=== PATIENT | female | born 2000 | race African-American/Black ===

== ENCOUNTER 2025-06-08 13:42 | Outpatient (CLI) | payer BC, SELFPAY ==
--- OUTSIDE RECORDS SUMMARY | 2025-06-08 13:30 | XMS_ITS | Encounter Summary ---
Author Organization [facility] KYLER Quiroga [facility] Address [address] [place] [address] Care Team Providers Care Monotyper Name Role Phone Unavailable Primary Care Provider Unavailabl e Reason for Referral * Laboratory Services (Routine) - Open Specialty Diagnoses / Procedures Referred By Bere sharma Referred To Contact Diagnoses Iron overload Procedures HEMOCHROMATOSIS GENOTYPE Lyle Soriano MD [address] [place] [address] Phone: tel: fax: Referral ID Status Reason Start Date Expiration Date Visits Re quested Visits Authorized [id number] Open 06/08/2025 07/09/2026 1 1 Reason for Visit * Reason Comments Establish Care Encounter Details Date Type Department Care Team (Late st Contact Info) Description 06/08/2025 1:30 PM CDT Office Visit [facility] Oncology and Hematology - [place] [address] [place] [address] [address] [place] [address] Lyle Soriano MD [address] [place] [address] Iron overload (Primary Dx) Social History Tobacco Use Types Packs/Day Years Used Date Smoking Tobacco: Never Smokeless Tobacco: Never Tobacco Cessation:Counseling Given: Not Answered Alcohol Use Standard Drinks/Week Comments Yes 0 (1 standard drink = 0.6 oz pur e alcohol) Daily 34- shots Comments Unknown Sex and Gender Information Value Date Recorded Sex Assigned at Not on file Legal Sex Female 3:51 PM CDT Gender Identity Not on file Sexual Orientation Not on file documented as of this encounter Last Filed Vital Signs Vital Sign Reading Time Taken Comments Blood Pressure 170/118 06/08/2025 1:26 PM CDT Pulse 107 06/08/2025 1:23 PM CDT Temperature 36.1 C (96.9 F) 06/08/2025 1:23 PM CDT Respiratory Rate 16 06/08/2025 1:23 PM CDT Oxygen Saturation 97% 06/08/2025 1:23 PM CDT Inhaled Oxygen Concentration - - Weight 117.7 kg (259 lb 6.4 oz) 06/08/2025 1:23 PM CDT Height 162.6 cm (5' 4) 06/08/2025 1:23 PM CDT Body Mass Index 44.53 06/08/2025 1:23 PM CDT documented in this encounter Progress Notes * Lyle Soriano MD - 06/08/2025 1:18 PM CDT Hematology-oncology consult Note Requesting Physician Primary Care Physician No primary care provider on file. Problem list There is no problem list on file for this patient. Previous TREATMENT ? Measurable Disease ? Reason for Visit Leslie Mi is a 25 y.o. female who was referred for consultation for iron overload. History of present illness This is a 25-year-old obese -Salvad[place] female with history of hypertension referred to wi forelevated serum iron level diagnosed in February 2025. According patient she was found to have elevated iron 2 years ago as well. She denies any history of hemochromatosis and family history of hemochromatosis as well. She drinks 3-4 shots a day for last 6 to 8 months duration. She has gained 70 pound weight in 6 years. Denies any history of liver disease. She denies taking any multivitamin or any other iron supplement. Her last menstrual bleeding was in May 2024 when Mirena IUD was placed. She denies any other new complaints. Past Medical History Past Medical History: Diagnosis Date Anemia, unspecified Hypertension Surgical History Past Surgical History: Procedure Laterality Date HX TONSILLECTOMY 2010 Medications Current Outpatient Medications Medication Sig Dispense Refill Cosentyx UnoReady Pen 300 mg/2 mL Pen Injector 300 mg. omeprazole (PriLOSEC) 20 mg Capsule, Delayed Release(E.C.) Take 20 mg by mouth daily. spironolactone (ALDACTONE) 100 mg tablet Take 100 mg by mouth daily. No current facility-administered medications for this visit. Allergies Allergies Allergen Reactions Sulfa (Sulfonamide Antibiotics) Hives Sulfamethoxazole-Trimethoprim Hives and Rash Immunizations: Immunization History Administered Date(s) Administered (AkaRx)(12 YR UP) COVID-19 VACCINE - EMERGENCY USE AUTHORIZATION, MRNA, [id number](PF) 30 MCG/0.3 MLIM SUSP 10/28/2020, 11/18/2020 Family History Family History Problem Relation Name Age of Onset Hypertension Father No Known Problems Mother Diabetes Brother No Known Problems Brother No Known Problems Child Social History Social History Tobacco Use Smoking status: Never Smokeless tobacco: Never Substance Use Topics Alcohol use: Yes Comment: Daily 34- shots Review of Systems Constitutional: Patient did not mention fever; no night sweats; no anorexia; no weight loss; no fatique NEENT: Patient did not mention headache; no change in vision; no change in hearing; no sore throat;no dysphagia Respiratory: Patient did not mention shortness of breath; no pleuritic chest pain; no cough; no hemoptysis Cardiac: Patient did not mention cardiac-like chest pain; no palpitations; no orthopnea; no PND; noDOE Breasts: Patient did not mention tenderness; no masses GI: Patient did not mention abdominal pain; no nausea; no vomiting; no diarrhea; no hematochezia; no melena : Patient did not mention dysuria; no frequency; no hesitancy; no hematuria CLOTH STRETCHER: Musculosketetal: Patient did not mention bone pain; no arthralgia; no joint swelling; no myalgia; Skin: Patient did not mention pruritis; no rash; no petechiae; no ecchymoses Endocrine: Patient did not mention polydipsia; no polyuria; no unusual weight gain Neuro: Patient did not mention headache; no change in vision; no sensory changes; no muscle weakness; no confusion; no seizures Psych: Patient did not mention anxiety; no depression; Physical Exam Vitals: As per nursing note Constitutional: Well developed, well nourished, no acute distress, non-toxic appearance Teeth and gum. No signs of infection or swelling. Eyes: PERRL, conjunctiva normal HEENT: Atraumatic, external ears normal, nose normal, oropharynx moist, no pharyngeal exudates. no sinus tenderness Neck- normal range of motion, no tenderness, supple Respiratory: No respiratory distress, normal breath sounds, no rales, no wheezing Cardiovascular: Normal rate, normal rhythm, no murmurs, no gallops, no rubs GI: Soft, nondistended, normal bowel sounds, nontender, no splenomegaly, no hepatomegaly, no mass, no rebound, no guarding : No costovertebral angle tenderness Musculoskeletal: No edema, no tenderness, no deformities. Back- no tenderness Integument: Well hydrated, no rash, Digits and nails inspection normal Lymphatic: No lymphadenopathy noted Neurologic: Alert & oriented x 3, CN 2-12 normal, normal motor function, normal sensory function, no focal deficits noted Psychiatric: Speech and behavior appropriate ? labs No results found for this or any previous visit (from the past 24 hours). Labs from January 2025 showed ferritin 207 iron 214 WBC 10.2 hemoglobin 14.4 platelet 318,000. Pathology ? Imaging & Other Studies Performance Status? Assessment / Plan: ? Iron overload. Patient is a 25-year-old obese -Salvad[place] female with history of hypertension referred to me for recently detected iron overload. According to patient she was told to have elevated serum iron 2 years ago. She denies any history of liver disease. She drinks 3-4 shots a day for last 6 to 8 months duration. She has gained 70 pound weight in 6 years. She is not taking any iron supplement and multivitamins. She has no family history of hemochromatosis. I have discussed the labs with the patient and implication of iron overload with the patient as well as the treatment in detail. I recommended regular exercise and weight loss along with abstinence from drinking. We will checkthe labs including CBC, CMP, iron profile and hemochromatosis genetic testing. I will discuss the results with patient in 2 weeks. Have answered all questions to patient satisfaction. GERD. Patient is on Prilosec. Thank you very much for allowing me to participate in Leslie Mi's evaluation and management. Please feel free to contact if I can be of any further assistance in your patient???s care requiring hematology or oncology evaluation. Sincerely, ? ? Lyle Soriano M.D. cell TOBACCO COUNSELING She is not a tobacco/nicotine user. Lyle Soriano MD ,06/08/2025 1:43 PM ? Total time spent 60 minutes, two third of the total time spent counseling patient [id number]. CC:? documented in this encounter Plan of Treatment Upcoming Encounters Date Type Department Care Team (Late st Contact Info) Description 06/22/2025 4:30 PM CDT Telephone Check Up [facility] Oncology and Hematology - [place] [address] [facility] [address] [place] [address] Lyle Soriano MD [address] [facility] [address] [place] [address] Scheduled Orders Name Type Priority Associated Diagnoses Orde r Schedule CBC WITH DIFFERENTIAL Lab Stat Iron overload Expected: 06/08/2025, Expires: 06/08/2026 COMPREHENSIVE METABOLIC PANEL Lab Stat Iron overload Expected: 06/08/2025, Expires: 06/08/2026 FERRITIN Lab Routine Iron overload Expected: 06/08/2025, Expires: 06/08/2026 IRON, TIBC, AND PERCENT SATURATION Lab Routine Iron overload Expected: 06/08/2025, Expires: 06/08/2026 HEMOCHROMATOSIS GENOTYPE Lab Routine Iron overload Ordered: 06/08/2025 documented as of this encounter Visit Diagnoses Diagnosis Iron overload- Primary Other disorders of iron metabolism documented in this encounter
[2025-06-08 14:14] LABS: Hematocrit 41.3 % (37.0-47.0); Hemoglobin 14.1 g/dL (12.0-15.0); Immature Granulocyte Percent A 0.4 % (0-0.5); Lymphocytes Absolute Auto 1.46 K/mm3 (0.9-3.2); Mean Corpuscular HGB Conc 34.1 g/dl (32-36); Mean Corpuscular Hemoglobin 33.3 pg (26-34); Mean Corpuscular Volume 97.6 fl (80-100); Nucleated Red Blood Cells Absolute Auto 0.000 K/mm3 (0.0-0.012); Nucleated Red Blood Cells Perc 0.0 % (0.0-0.2); Platelet Count Result 328 k/mm3 (150-375); Red Blood Count 4.23 M/mm3 (4.2-5.4); White Blood Count 10.8 K/mm3 (4.5-10.0)
--- OUTSIDE RECORDS SUMMARY | 2025-06-08 16:24 | XMS_ITS | Encounter Summary ---
Author Organization [facility] Address [address] [place] [address] Care Team Providers Care Electronic Systems Technician Name Role Phone Elian Galeana MD Unavailable Leila Moncada PA-C Primary Care Provider [phone]- [phone] Encounter Details Date Type Department Care Team (Latest Contact Info) Description 12/17/[address] [facility] Multispecialty Care - [facility] [address] [facility], [address] [place] [address] Sara Knox NP [address] [facility] [address] [place] [address] Colonoscopy questions Social History Tobacco Use Types Packs/Day Years Used Date Smoking Tobacco: Every Day Electronic Cigarettes Smokeless Tobacco: Never Comments:E-cigarrettes Alcohol Use Standard Drinks/Week Comments Yes 1.7 (1 standard drink = 0.6 oz p ure alcohol) AUDIT-C Answer Date Recorded Frequency of Alcohol Consumption Never 01/02/2019 Average Number of Drinks Not on file 019 Frequency of Binge Drinking Not on file 12/23 PHQ-2 Answer Date Recorded Patient Health Questionnaire-2 Score 0 07/07/2024 Comments No Sex and Gender Information Value Date Recorded Sex Assigned at Not on file Legal Sex Female 8:11 PM CDT Gender Identity Female 02/10/2022 8:46 AM CDT Sexual Orientation Straight 02/10/2022 8: 46 AM CDT Occupation Industry Job Start Date Job End Date Not on file Not on file Not on file Not on file documented as of this encounter Functional Status * RETIRED Are you deaf or do you have serious difficulty hearing Answer Date of Assessment Author Status No 01/29/2019 1:14 AM CDT Activ e * RETIRED Are you blind or do you have serious difficulty seeing, even when wearing glasses? Answer Date of Assessment Author Status No 01/29/2019 1:14 AM CDT Activ e * Do you have serious difficulty walking or climbing stairs? Answer Date of Assessment Author Status No 01/29/2019 1:14 AM CDT Dena Morgan RN Active * Do you have difficulty dressing or bathing? Answer Date of Assessment Author Status No 01/29/2019 1:14 AM CDT Dena Morgan RN Active * Because of a physical, mental, or emotional condition, do you have difficulty doing errands alone such as visiting a doctor's office or shopping? Answer Date of Assessment Author Status No 01/29/2019 1:14 AM Dena Salinas RN Active documented as of this encounter Mental Status * Because of a physical, mental, or emotional condition, do you have serious difficulty concentrating, remembering, or making decisions? Answer Entry Date Author Status No 01/29/2019 1:14 AM Dena Salinas RN Active documented in this encounter Plan of Treatment Upcoming Encounters Date Type Department Care Team (Late st Contact Info) Description 08/26/2025 9:20 AM TAR POT MAN Office Visit [facility] Multispecialty Care - [facility] [address] [place] [address] Mateusz Sanchez, [address] [facility] [address] [place], [place] [address] 10/05/2025 3:40 PM TAR POT MAN Office Visit [facility] Family Medicine - [place] [address] [place] [address] Leila Moncada PA-C [address] [place] [phone] documented as of this encounter Visit Diagnoses Not on filedocumented in this encounter Additional Health Concerns Assessment Noted Time PHQ-9 Depression Total Score: 0 04/18/20 21 3:52 PM CDT documented as of this encounter Care Teams Electronic Systems Technician Relationship Specialty Start Date End Date Leila Moncada PA-C [address] [place] [phone] PCP - General PHYSICIAN SUPPORT TEACHER 07/12/22 Elian Galeana MD [facility]. [facility] [address] [place] [address] EP Market Editor CLINICAL CARDIAC ELECTROPHYSIOLOGY 07/04/19 documented as of this encounter
--- OUTSIDE RECORDS SUMMARY | 2025-06-08 16:24 | XMS_ITS | Encounter Summary ---
Author Organization [facility] Address [address] [place] [address] Care Team Providers Care Harness Rigger Name Role Phone None, Provider MD Primary Care Provider Elian Alva MD Unavailable Rico Hall MD Primary Care Provider Leila FigueroaC Primary Care Provider [phone]- [phone] Reason for Visit * Reason Onset Date Comments Post-hospital Follow-up 02/25/2019 Encounter Details Date Type Department Care Team (Late st Contact Info) Description 02/25/2019 Hospital Follow-up Call [facility] [place] [address] Davina Armendariz RN Post-hospital Follow-up Social History Tobacco Use Types Packs/Day Years Used Date Smoking Tobacco: Never Smokeless Tobacco: Never Alcohol Use Standard Drinks/Week Comments No 0 (1 standard drink = 0.6 oz pur e alcohol) AUDIT-C Answer Date Recorded Frequency of Alcohol Consumption Never 01/02/2019 Average Number of Drinks Not on file 019 Frequency of Binge Drinking Not on file 12/23 Comments No Sex and Gender Information Value Date Recorded Sex Assigned at Not on file Legal Sex Female 8:11 PM CDT Gender Identity Female 02/10/2022 8:46 AM CDT Sexual Orientation Straight 02/10/2022 8: 46 AM CDT documented as of this encounter Functional Status [...] 01/29/2019 1:14 AM Dena Salinas RN Active * Do you have difficulty dressing or bathing? Answer Date of Assessment Author Status No 01/29/2019 1:14 AM Dena Salinas RN Active * Because of a physical, [...] st Contact Info) Description 08/26/2025 9:20 AM OPERATIONAL REVIEW SERGEANT Office Visit [facility] Multispecialty Care - [facility] [address] [place] [address] Mateusz Sanchez, [address] [facility] [address] [place] [address] 10/05/2025 3:40 PM OPERATIONAL REVIEW SERGEANT Office Visit [facility] Family Medicine - [place] [address] [place] [phone] Leila Moncada PA-C [address] [place] [address] documented as of this encounter Visit Diagnoses Not on filedocumented in this encounter Care Teams Harness Rigger Relationship Specialty Start Date End Date None, Provider, PCP - General 12/20/18 06/23/19 Rico Hall MD [address] [facility]. [facility] [address] [place] [address] PCP - General FAMILY PRACTICE 06/24/19 07/11/22 Leila Moncada PA-C [address] [place] [address] PCP - General PHYSICIAN MAGAZINE GRINDER LOADER 07/12/22 Elian Galeana MD [address] [facility]. [facility] [address] [place], [place] [id number] EP Design Maintenance Engineer CLINICAL CARDIAC ELECTROPHYSIOLOGY 07/04/19 documented as of this encounter
--- OUTSIDE RECORDS SUMMARY | 2025-06-08 16:24 | XMS_ITS | Encounter Summary ---
Author Organization [facility] Address [address] [place] [address] Care Team Providers Care Customer Account Specialist Name Role Phone Elian Galeana MD Unavailable Rico Hall MD Primary Care Provider Unav ailable Leila Moncada PA-C Primary Care Provider +1- [phone] Encounter Details Date Type Department Care Team (Late st Contact Info) Description 06/01/2021 [facility] Data Visiont Message Enc [facility] Family Medicine - [place] [address] [place] [phone] Leila Moncada PA-C [address] [place] [address] Question Social History Tobacco Use Types Packs/Day Years Used Date Smoking Tobacco: Every Day Electronic Cigarettes Smokeless Tobacco: Never Alcohol Use Standard Drinks/Week Comments Yes 1.7 (1 standard drink = 0.6 oz p ure alcohol) AUDIT-C Answer Date Recorded Frequency of Alcohol Consumption Never 01/02/2019 Average Number of Drinks Not on file 019 Frequency of Binge Drinking Not on file 12/23 PHQ-2 Answer Date Recorded PHQ-2 Score - If the patient scores above 3, please move on to questions 3-9 0 04/18/2021 Comments No Sex and Gender Information Value Date Recorded Sex Assigned at Not on file Legal Sex Female 8:11 PM CDT Gender Identity Female 02/10/2022 8:46 AM CDT Sexual Orientation Straight 02/10/2022 8: 46 AM CDT Occupation Industry Job Start Date Job End Date Not on file Not on file Not on file Not on file COVID-19 Exposure Response Date Recorded In the last month, have you been in contact with someone who was confirmed or suspected to have Coronavirus / COVID-19? No / Unsure 05/20/2021 12:52 PM CDT documented as of this encounter Functional [...] 1:14 AM CDT Dena Morgan RN Active documented as of this encounter Mental Status * Because of a physical, mental, or emotional condition, do you have serious difficulty concentrating, remembering, or making decisions? Answer Entry Date Author Status No 01/29/2019 1:14 AM CDT Dena Morgan RN Active documented in this encounter Progress Notes * Anna Marie Marcelino MA - 06/02/2021 2:05 PM CDT I spoke with pt, diflucan is fine. Also advised to get probiotic otc. Pt informed * Leila Moncada PA-C - 06/01/2021 4:46 PM CDT I can call something in if you can find out what pharmacy. And clarify that she doesn't want the diflucan pill. documented in this encounter Plan of Treatment Upcoming Encounters Date Type Department Care Team (Late st Contact Info) Description 08/26/2025 9:20 AM SOCIAL SCIENCES INSTRUCTOR Office Visit [facility] Multispecialty Care - [facility] [address] [place] [address] Mateusz Sanchez DO [address] [facility] [address] [place] [address] 10/05/2025 3:40 PM SOCIAL SCIENCES INSTRUCTOR Office Visit [facility] Family Medicine - [place] [address] [place] [phone] Leila Moncada PA-C [address] [place] [address] documented as of this encounter Visit Diagnoses Not on filedocumented in this encounter Additional Health Concerns Assessment Noted Time PHQ-9 Depression Total Score: 0 04/18/20 3:52 PM CDT documented as of this encounter Care Teams Customer Account Specialist Relationship Specialty Start Date End Date Rico Hall MD Three [facility]. [address] [place] [address] PCP - General FAMILY PRACTICE 06/24/19 07/11/22 Leila Moncada PA-C [address] [place] [address] PCP - General PHYSICIAN TAPE RECORDER MECHANIC 07/12/22 Elian Galeana MD [address] [facility] [address] [place] [address] EP Material Requirements Planning Manager CLINICAL CARDIAC ELECTROPHYSIOLOGY 07/04/19 documented as of this encounter
--- OUTSIDE RECORDS SUMMARY | 2025-06-08 16:24 | XMS_ITS | Encounter Summary ---
Author Organization [facility] Address [address] [place] [address] Care Team Providers Care Rn Neonatal Name Role Phone Elian Galeana MD Unavailable Rico Hall MD Primary Care Provider Unav ailable Leila Moncada PA-C Primary Care Provider [phone]- [phone] Encounter Details Date Type Department Care Team (Late st Contact Info) Description 05/19/2021 MyCPharmacy Developmentt Message Enc [facility] Family Medicine - [place] [address] [place] [phone] Leila Moncada PA-C [address] [place] [address] Medication Questions Social History Tobacco Use Types Packs/Day Years [...] documented in this encounter Progress Notes * Ruperto Lovell II, MD - 05/19/2021 10:12 AM CDT Patient called. She will treat her axilla topically with vaseline or hydrocortisone cream until healed. Sjhe will then try the drysol once a week rather than every other day to see if that gives her adequate control. If that doesn't work, may consider dermatology consult for Botox injections. documented in this encounter Plan of Treatment Upcoming Encounters Date Type Department Care Team (Late st Contact Info) Description 08/26/2025 9:20 AM GRIP WRAPPER Office Visit [facility] Multispecialty Care - [place] [address] [facility] [place] [address] [address] [place] [address] 10/05/2025 3:40 PM GRIP WRAPPER Office Visit [facility] Family Medicine - [place] [address] [place] [phone] Leila Moncada PA-C [address] [place] [address] documented as of this encounter Visit Diagnoses Not on filedocumented in this encounter Additional Health Concerns Assessment Noted Time PHQ-9 Depression Total Score: 0 04/18/20 3:52 PM CDT documented as of this encounter Care Teams Rn Neonatal Relationship Specialty Start Date End Date Rico Hall MD [facility] [address] [place] [address] PCP - General FAMILY PRACTICE 06/24/19 07/11/22 Leila Moncada PA-C [address] [place] [address] PCP - General PHYSICIAN FEEDER ASSOCIATE 07/12/22 Elian Galeana MD [address] [facility] [address] [place] [address] EP Vice President Diversity CLINICAL CARDIAC ELECTROPHYSIOLOGY 07/04/19 documented as of this encounter
--- OUTSIDE RECORDS SUMMARY | 2025-06-08 16:24 | XMS_ITS | Encounter Summary ---
Author Organization [facility] Address [address] [place] [address] Care Team Providers Care Trial Mgr Name Role Phone Elian Galeana MD Unavailable Leila Moncada PA-C Primary Care Provider [phone]- [phone] Encounter Details Date Type Department Care Team (Late st Contact Info) Description 01/07/2025 HangItt Message Enc [facility] Medical [facility] Family Medicine - [place] [phone] Leila Moncada PA-C [address] [place] [address] Initiation of spironolactone Social History Tobacco Use Types Packs/Day Years [...] documented in this encounter Progress Notes * Leila Moncada PA-C - 01/07/2025 7:38 PM CDT I added it to meds list. She should make a follow up apt in a few weeks for her BP recheck also so we can recheck it and treat further if needed. documented in this encounter Plan of Treatment Upcoming Encounters Date Type Department Care Team (Late st Contact Info) Description 08/26/2025 9:20 AM ANIMAL CYTOLOGIST Office Visit [facility] Medical [facility] Multispecialty Care - [facility] [address] [place] [address] Mateusz Sanchez, [address] [place] [address] 10/05/2025 3:40 PM ANIMAL CYTOLOGIST Office Visit [facility] Medical [facility] Family Medicine - [place] [address] [place] [phone] Leila Moncada PA-C [address] [place] [address] documented as of this encounter Visit Diagnoses Not on filedocumented in this encounter Additional Health Concerns Assessment Noted Time PHQ-9 Depression Total Score: 0 04/18/20 21 3:52 PM CDT documented as of this encounter Care Teams Trial Mgr Relationship Specialty Start Date End Date Leila Moncada PA-C [address] [place] [address] PCP - General PHYSICIAN SHEET METAL SHOP SUPERVISOR 07/12/22 Elian Galeana MD Three [facility]. [address] [place] [address] EP Java Sybase Developer CLINICAL CARDIAC ELECTROPHYSIOLOGY 07/04/19 documented as of this encounter
--- OUTSIDE RECORDS SUMMARY | 2025-06-08 16:24 | XMS_ITS | Encounter Summary ---
Author Organization [facility] Address [address] [place] [address] Care Team Providers Care Cement Truck Driver Name Role Phone Elian Galeana MD Unavailable Leila Moncada PA-C Primary Care Provider +1- [phone] Encounter Details Date Type Department Care Team (Late st Contact Info) Description 03/13/2025 RedTail Solutionst Message Enc [facility] Medical Group Family Medicine - [place] [phone] Leila Moncada PA-C [address] [place] [address] Hematology referral Social History Tobacco Use Types Packs/Day Years [...] Date Recorded Patient Health Questionnaire-2 Score 0 02/09/2025 Comments No Sex and Gender Information Value [...] st Contact Info) Description 08/26/2025 9:20 AM LOAN ASSOCIATE Office Visit [facility] Multispecialty Care - [facility] [address] [place] [address] Mateusz Sanchez, [address] [place] [address] 10/05/2025 3:40 PM LOAN ASSOCIATE Office Visit [facility] Family Medicine - [address] [address] eLila Moncada PA-C [address] [place] [address] documented as of this encounter Visit Diagnoses Not on filedocumented in this encounter Additional Health Concerns Assessment Noted Time PHQ-9 Depression Total Score: 0 04/18/20 21 3:52 PM CDT documented as of this encounter Care Teams Cement Truck Driver Relationship Specialty Start Date End Date Leila Moncada PA-C [address] [place] [phone] PCP - General PHYSICIAN SHANK SORTER 07/12/22 Elian Galeana MD [facility] [address] [place], [place] [id number] EP Vp Sales CLINICAL CARDIAC ELECTROPHYSIOLOGY 07/04/19 documented as of this encounter
--- OUTSIDE RECORDS SUMMARY | 2025-06-08 16:24 | XMS_ITS | Encounter Summary ---
Author Organization [facility] Address [address] [place] [address] Care Team Providers Care Rn Occupational Name Role Phone Elian Galeana MD Unavailable Rico Hall MD Primary Care Provider Unav ailable Leila Moncada PA-C Primary Care Provider [phone]- [phone] Encounter Details Date Type Department Care Team (Late st Contact Info) Description 06/27/2022 Lassot Message Enc [facility] Medical [facility] Family Medicine - [place] [address] [place] [phone] Leila Moncada PA-C [address] [place] [address] Iron level Social History Tobacco Use Types Packs/Day Years [...] please move on to questions 3-9 0 02/13/2022 Comments No Sex and Gender Information Value [...] Exposure Response Date Recorded In the last 10 days, have elzbieta duarte been in contact with someone who was confirmed or suspected to have Coronavirus/COVID-19? No / Unsure 06/19/2022 11:17 AM CDT documented as of this encounter [...] documented in this encounter Progress Notes * Caitlin Sutherland MA - 06/29/2022 5:03 PM CDT Please advise/I will be letting patient know that you are out of the office until next week documented in this encounter Plan of Treatment Upcoming Encounters Date Type Department Care Team (Late st Contact Info) Description 08/26/2025 9:20 AM CLEANING HANDYMAN Office Visit [facility] Medical Group Multispecialty Care - [facility] [address] [place] [address] Mateusz Sanchez, DO [address] [place] [address] 10/05/2025 3:40 PM CLEANING HANDYMAN Office Visit [facility] Medical [facility] Family Medicine - [place] [address] [place] [phone] Leila Moncada PA-C [address] [place] [address] documented as of this encounter Visit Diagnoses Not on filedocumented in this encounter Additional Health Concerns Assessment Noted Time PHQ-9 Depression Total Score: 0 04/18/20 21 3:52 PM CDT documented as of this encounter Care Teams Rn Occupational Relationship Specialty Start Date End Date Rico Hall MD [facility] [address] [place] [address] PCP - General FAMILY PRACTICE 06/24/19 07/11/22 Leila Moncada PA-C [address] [place] [address] PCP - General PHYSICIAN COIL TIER 07/12/22 Elian Galeana MD [facility] [address] [address] [place] [address] EP Yarn Carrier CLINICAL CARDIAC ELECTROPHYSIOLOGY 07/04/19 documented as of this encounter
--- OUTSIDE RECORDS SUMMARY | 2025-06-08 16:24 | XMS_ITS | Clinical Summary ---
Author Organization [facility] Address [address] [place] [address] Care Team Providers Care Regional Airline Pilot Name Role Phone Leila Moncada Primary Care Provider [phone] Allergies Active Allergy Reactions Criticality Noted Date Comments Sulfa (Sulfonamide Antibiotics) Hives,Itching Medium 0 06/10/2021 Medications multivit-minera ls/folic acid (MULTIVITAMIN GUMMIES ORAL) Active fluticasone propionate (FLONASE) 50 mcg/actuation nasal sprayIndication s:Dysfunction of both eustachian tubes Administer 2 sprays into each nostril daily 1 each 5 1 Active ketoconazole (NIZORAL) 2 % shampoo APPLY TOPICALLY 2 TIMES A WEEK 2 Active Humira,CF, Pen 80 mg/0.8 mL pen injector kit Inject 0.8 mL (80 mg total) under the skin every 14 (fourteen) days 3 Active Active Problems Problem Noted Date Diagnosed Date Dysfunction of both eustachian tubes 07/29/2021 Tinnitus of both ears 07/29/2021 Surgical History Surgery Date Site/Laterality Comments TONSILLECTOMY TONSILLECTOMY 09/24/2008 - 09/23/2009 Medical History Medical History Date Comments Allergic rhinitis Dizziness HL (hearing loss) Tinnitus Anxiety Anemia Depression Family History Medical History Relation Name Comments Diabetes Brother 1 Allergy (severe) Brother 2 Ruperto Mi Jr Obesity Brother 2 Ruperto Mi Jr Allergy (severe) Father Ruperto Mi Hypertension Father Ruperto Mi Obesity Father Ruperto Mi Diabetes Maternal Grandmother Cathi Grant Obesity Maternal Grandmother Cathi Grant Allergy (severe) Mother Angely Mi Anemia Mother Angely Mi Depression Mother Angely Mi Obesity Mother Angely Mi Breast cancer Neg Hx Ovarian cancer Neg Hx Relation Name Status Comments Brother 1 Brother 2 Ruperto Mi Jr Father Ruperto Mi Maternal Grandmother Cathi Grant Mother Angely Mi Social History Tobacco Use Types Packs/Day Years Used Date Smoking Tobacco: Every Day Vaping Smokeless Tobacco: Never Tobacco Cessation:Ready to Q uit: No AUDIT-C Answer Date Recorded Q1: How often do you have a drink containing alc ohol? 2-4 times a month 09/04/2022 Q2: How many drinks containi ng alcohol do you have on a typical day when you are drinking? 1 or 2 09/04/2022 Q3: How often do you have si x or more drinks on one occasion? Less than monthly 09/04/2022 Comments No Sex and Gender Information Value Date Recorded Sex Assigned at Not on file Legal Sex Female 7:28 PM CDT Gender Identity Female 06/10/2021 5:55 AM CDT Sexual Orientation Straight 06/10/2021 5: 55 AM CDT Obstetrics History Para Term AB IAB SAB Ectopic Multiple Livin g Live Births 1 1 Date Outcome GA Total Labor Labor/2nd/3rd Weight Sex Type Anes PTL Joy A1 A5 Name Clin Para Last Filed Vital Signs Vital Sign Reading Time Taken Comments Blood Pressure 142/80 09/15/2024 11:08 AM SCRIPT DEVELOPER Pulse 90 04/27/2022 1:08 PM CDT Temperature 36.1 C (97 F) 04/27/2022 1:08 PM CDT Respiratory Rate 17 08/30/2021 3:16 PM SCRIPT DEVELOPER Oxygen Saturation 100% 12/26/2019 7:28 PM CDT Inhaled Oxygen Concentration - - Weight 117.5 kg (259 lb) 09/15/2024 11:08 AM SCRIPT DEVELOPER Height 162.6 cm (5' 4) 09/15/2024 11:08 AM SCRIPT DEVELOPER Body Mass Index 44.46 09/15/2024 11:08 AM SCRIPT DEVELOPER Plan of Treatment Health Maintenance Due Date Last Done Comments Depression Screening 1999 Hepatitis C Screening 1999 DTaP/Tdap/Td Vaccine (1 - Tdap) 2010 Varicella Vaccines (1 of 2 - 13+ 2-dose series) 2012 HPV Vaccines (1 - 3-dose series) 2014 Hepatitis B Screening 2017 Pneumococcal vaccine <65 (1 of 2 - PCV) 2018 Cervical Cancer Screening 09/04/2023 09/04/2022, 02/2022 Covid-19 Vaccine (3 - 2024-2 6 season) 2025 11/18/2020, 10/28/2020 Influenza Vaccine (#1) 2025 Regular Well Visit/Exam 18-64 09/15/2025, 09/10/2023, 09/04/2022, Additional history exists Procedures Procedure Name Priority Date/Time Associated Diagnosis Comments PAP WITH REFLEX TO HIGH RISK HPV Routine 09/04/2022 9:41 AM SCRIPT DEVELOPER Well woman exam from Last 3 Months or Most Recently Relevant to Health Maintenance Results * Pap with reflex to High Risk HPV (09/04/2022 9:41 AM SCRIPT DEVELOPER) Thin prep (Pap test) 09/04/2022 9:41 AM SCRIPT DEVELOPER 09/05/2022 9:41 AM SCRIPT DEVELOPER Narrative PATHOLOGY [facility] - 09/06/2022 4:42 PM SCRIPT DEVELOPER [facility] Department of Pathology [address] [place], [place] [id number] Final Report Note to Patients: This report may contain a detailed description of human tissue sent by a health care provider to the laboratory for pathologic evaluation. The content of this report is essential for diagnosis and may provide important critical findings. This information may be unfamiliar to patients to review without a medical professional present. It is advised that the patient review this report in the presence of a health care provider who can answer questions and explain the details. Patient Name: ONEIDA MI Address: [address] [place] [address] Gender: F : 2000 (Age: 22) Service: Laboratory Location: [facility] #: [id number] Patient Type: [facility] SPECIMEN Taken: 09/04/2022 Received: 09/05/2022 Accessioned:: 09/06/2022 Reported: 09/06/2022 Physician(s): Aquiles Burgess M.D. [facility] Diagnosis: Source of Specimen: Imaged Thinprep Pap Test w/ Reflex HPV - Buildings Painter Cytologic Material Specimen Adequacy: - Satisfactory for evaluation; endocervical/transformation zone component present General Category: - Negative for intraepithelial lesion or malignancy Interpretation/Results: - Trichomonas vaginalis present SONYA Armendariz(ASCP)SONYA Garcia(ASCP) Report Electronically Reviewed and Signed Out By SONYA Garcia(ASCP) 09/06/2022 16:42:22Specimen(s) Received: A: Imaged Thinprep Pap Test w/ Reflex HPV - Buildings Painter Cytologic Material Clinical History: Menstrual History: Previous Abnormal Pap: ASCUS Contraceptive History: IUD The Pap test is a screening test used to aid in the detection of cervical cancer and its precursors. It should not be the sole means by which malignant and premalignant lesions are diagnosed. Both false negative and false positive results may occur. It also has poor sensitivity for the detection of endometrial lesions and should not be used to evaluate suspected endometrial abnormalities. For these reasons it is most important to obtain Pap tests at regular intervals. The performance characteristics of some immunohistochemical stains, fluorescence in-situ hybridization tests and immunophenotyping by flow cytometry cited in this report (if any) were determined by the Surgical Pathology Department at [facility] as part of an ongoing quality review specialist program and in compliance with federally mandated regulations drawn from the Clinical Laboratory Improvement Act of 1988 (CLIA '88). Some of these tests rely on the use of analyte specific reagents and are subject to specific labeling requirements by the US Food and Drug Administration. Such diagnostic tests may only be performed in a facility that is certified by the Department of Health and Human Services as a high complexity laboratory under CLIA '88. The FDA has determined that such clearance or approval is not necessary. This test is used for clinical purposes. It should not be regarded as investigational or for research. Nevertheless, federal rules concerning the medical use of analyte specific reagents require that the following disclaimer be attached to the report: This test was developed and its performance characteristics determined by the Surgical Pathology Department [facility]. It has not been cleared or approved by the U. S. Food and Drug Administration. Aquiles Burgess MD LAB CYTOLOGY ORDERABLES Final Result [facility] from Last 3 Months or Most Recently Relevant to Health Maintenance [place] Care Teams Regional Airline Pilot Relationship Specialty Start Date End Date Leila Moncada PA [address] [place] [address] PCP - General 01/01/20
--- OUTSIDE RECORDS SUMMARY | 2025-06-08 16:24 | XMS_ITS | Encounter Summary ---
Author Organization [facility] Address [address] [place] [address] Care Team Providers Care Brake Lining Finisher Asbestos Name Role Phone Elian Galeana MD Unavailable Leila Moncada PA-C Primary Care Provider [phone]- [phone] Encounter Details Date Type Department Care Team (Late st Contact Info) Description 11/09/2022 Panelflyt Message Enc [facility] Medical Group Family Medicine - [place] [phone] Leila Moncada PA-C [address] [place] [address] Medication Request Social History Tobacco Use Types Packs/Day Years Used Date Smoking Tobacco: Every Day Cigarettes Electronic Cigarettes Smokeless Tobacco: Never Comments:E-cigarrettes Alcohol Use Standard Drinks/Week Comments Yes 1.7 (1 standard drink = 0.6 oz p ure alcohol) AUDIT-C Answer Date Recorded Frequency of Alcohol Consumption Never 01/02/2019 Average Number of Drinks Not on file 019 Frequency of Binge Drinking Not on file 12/23 PHQ-2 Answer Date Recorded Patient Health Questionnaire-2 Score 0 10/17/2022 Comments No Sex and Gender Information Value [...] Recorded In the last 10 days, have yo u been in contact with someone who was confirmed or suspected to have Coronavirus/COVID-19? No / Unsure 10/17/2022 10:31 AM DIRECTOR STYLE documented as of this encounter Functional Status [...] Salinas RN Active documented in this encounter Progress Notes * Caitlin Sutherland MA - 11/09/2022 9:59 AM CST Can patient do urine test at [facility] or does she need to come into the office? Please advise CTOR STYLE documented in this encounter Plan of Treatment Upcoming Encounters Date Type Department Care Team (Late st Contact Info) Description 08/26/2025 9:20 AM DIRECTOR STYLE Office Visit [facility] Medical Group Multispecialty Care - [facility] [address] [facility] [facility] [place] [phone] Mateusz Sanchez, [address] [facility] [place] [address] 10/05/2025 3:40 PM DIRECTOR STYLE Office Visit [facility] Medical Group Family Medicine - [place] [address] [place] [phone] Leila Moncada PA-C [address] [place] [address] documented as of this encounter Visit Diagnoses Not on filedocumented in this encounter Additional Health Concerns Assessment Noted Time PHQ-9 Depression Total Score: 0 04/18/20 21 3:52 PM CDT documented as of this encounter Care Teams Brake Lining Finisher Asbestos Relationship Specialty Start Date End Date Leila Moncada PA-C [address] [place] [address] PCP - General PHYSICIAN REPORT PROGRAMMER 07/12/22 Elian Galeana MD Three [facility]. [address] [place] [address] EP Concrete Puddler CLINICAL CARDIAC ELECTROPHYSIOLOGY 07/04/19 documented as of this encounter
--- OUTSIDE RECORDS SUMMARY | 2025-06-08 16:24 | XMS_ITS | Clinical Summary ---
Author Organization [facility] Address [address] [place] [address] Care Team Providers Care Retail Worker Name Role Phone Unknown, Provider Primary Care Provider Unavaila ble Source Comments [facility],non-owned Affiliates and Associated Physician Practices is amultiple site organization consisting of ambulatory clinics and hospital sitesin [place], [place], [place] and [place]. This disclosure is being madepursuant to the Care Everywhere program and may not contain all information available regarding this patient. Last updated 18.[employer] [facility] Allergies Active Allergy Reactions Criticality Noted Date Comments Sulfa Drugs Urticaria Medium 01/09/2017 Medications * Be aware that medications may not be up to date on this document. Alwaysverify current medications with the patient. No known medications Active Problems Problem Noted Date Diagnosed Date Heart palpitations 07/03/2019 Irregular heart beats 07/03/2019 Social History Tobacco Use Types Packs/Day Years Used Date Smoking Tobacco: Every Day Smokeless Tobacco: Never Comments Unknown Sex and Gender Information Value Date Recorded Sex Assigned at Not on file Legal Sex Female 10:07 AM CDT Gender Identity Not on file Sexual Orientation Not on file Last Filed Vital Signs Vital Sign Reading Time Taken Comments Blood Pressure 104/64 03/09/2021 11:04 AM CDT Pulse 82 03/09/2021 11:04 AM CDT Temperature 36.5 C (97.7 F) 03/09/2021 11:04 AM CDT Respiratory Rate 17 03/09/2021 11:04 AM CDT Oxygen Saturation 98% 03/09/2021 11:04 AM CDT Inhaled Oxygen Concentration - - Weight 88 kg (194 lb) 03/09/2021 11:04 AM CDT Height 161.9 cm (5' 3.75) 03/09/2021 11:04 AM C DT Body Mass Index 33.56 03/09/2021 11:04 AM CDT Plan of Treatment Health Maintenance Due Date Last Done Comments HPV VACCINE (1 - 3-dose series) 2014 DTAP/TDAP/TD VACCINES (1 - Tdap) 2018 HEPATITIS B VACCINE (1 of 3 - 19+ 3-dose series) 2018 PNEUMOCOCCAL VACCINE (1 of 2 - PCV) 2018 DEPRESSION SCREENING 09/24/2024 COVID-19 VACCINE (3 - 2024-2 6 season) 2025 11/18/2020, 10/28/2020 INFLUENZA VACCINE (#1) 2025 PAP SMEAR 09/04/2025 09/04/2022 ZOSTER VACCINE (1 of 2) 2049 HIV SCREENING Completed 11/14/2018, 05/29/2018 HEPATITIS C SCREENING Completed 10/14/2022 HIB VACCINE Aged Out No longer eligi ble based on patient's age to complete this topic MENINGOCOCCAL (Group B) VACCINE SHARED DECISION-MAKING Aged Out No longer eligible based on patient's age to complete this topic MENINGOCOCCAL GROUPS A/C/Y/W VACCINE Aged Out No longer eligible b ased on patient's age to complete this topic Insurance [facility] Care Teams Retail Worker Relationship Specialty Start Date End Date Unknown, Provider PCP - General 03/09/21
--- OUTSIDE RECORDS SUMMARY | 2025-06-08 16:24 | XMS_ITS | Encounter Summary ---
Author Organization [facility] Address [address] [place] [address] Care Team Providers Care Senior Sales Engineer Name Role Phone Elian Galeana MD Unavailable Leila Moncada PA-C Primary Care Provider [phone]- [phone] Encounter Details Date Type Department Care Team (Late st Contact Info) Description 02/02/2023 Energy Exceleratort Message Enc [facility] Medical Group Family Medicine - [place] [phone] Leila Moncada PA-C [address] [place] [address] New medication Social History Tobacco Use Types Packs/Day Years [...] Progress Notes * Leila Moncada PA-C - 02/03/2023 6:54 PM CDT Yes this is ok. Her nurse discharge planner may need to monitor her labs though. documented in this encounter Plan of Treatment Upcoming Encounters Date Type Department Care Team (Late st Contact Info) Description 08/26/2025 9:20 AM CITY DIRECTOR Office Visit [facility] Medical Group Multispecialty Care - [facility] [address] [place] [address] Mateusz Sanchez, [address] [facility] [address] [place] [address] 10/05/2025 3:40 PM CITY DIRECTOR Office Visit [facility] Medical Group Family Medicine - [place] [address] [place] [phone] Leila Moncada PA-C [address] [place] [address] documented as of this encounter Visit Diagnoses Not on filedocumented in this encounter Additional Health Concerns Assessment Noted Time PHQ-9 Depression Total Score: 0 04/18/20 3:52 PM CDT documented as of this encounter Care Teams Senior Sales Engineer Relationship Specialty Start Date End Date Leila Moncada PA-C [address] [place] [address] PCP - General PHYSICIAN LOCK TECHNICIAN 07/12/22 Elian Galeana MD [facility]. [facility] [address] [place] [address] EP Vinyl Installer CLINICAL CARDIAC ELECTROPHYSIOLOGY 07/04/19 documented as of this encounter
--- OUTSIDE RECORDS SUMMARY | 2025-06-08 16:24 | XMS_ITS | Encounter Summary ---
Author Organization [facility] Address [address] [place] [address] Care Team Providers Care Chili Powder Mixer Name Role Phone None, Provider MD Primary Care Provider Elian Alva MD Unavailable Rico Hall MD Primary Care Provider Leila Figueroa PA-C Primary Care Provider +1- [phone] Encounter Details Date Type Department Care Team (Late st Contact Info) Description 02/22/2019 Hospital Follow-up Call [facility] [place], [place] [phone] Nuha Ascencio, RN Social History Tobacco Use Types Packs/Day Years [...] Assessment Author Status No 01/29/2019 1:14 AM FANT Dena Morgan RN Active * Do you have difficulty dressing or bathing? Answer Date of Assessment Author Status No 01/29/2019 1:14 AM FANT Dena Morgan RN Active * Because of [...] st Contact Info) Description 08/26/2025 9:20 AM CONVEYOR LINE BATTERY CHARGER Office Visit [facility] Multispecialty Care - [facility] [address] [facility] [address] [place] [phone] Mateusz Sanchez DO 3 [facility] [address] [place] [address] 10/05/2025 3:40 PM CONVEYOR LINE BATTERY CHARGER Office Visit [facility] Family Medicine - [place] [address] [place] [phone] Leila Moncada PA-C 100 [place] [address] documented as of this encounter Visit Diagnoses Not on filedocumented in this encounter Care Teams Chili Powder Mixer Relationship Specialty Start Date End Date None, Provider, PCP - General 12/20/18 06/23/19 Rico Hall MD Three [facility] [address] [place] [address] PCP - General FAMILY PRACTICE 06/24/19 07/11/22 Leila Moncada PA-C [address] [place] [phone] PCP - General PHYSICIAN NURSING SECRETARY 07/12/22 Elian Galeana MD Three [facility]. [facility] [address] [place] [address] EP Sales Producer CLINICAL CARDIAC ELECTROPHYSIOLOGY 07/04/19 documented as of this encounter
--- OUTSIDE RECORDS SUMMARY | 2025-06-08 16:24 | XMS_ITS | Clinical Summary ---
Author Organization [facility] Brendanlesviamalik Ortega Address [address] [place] [address] Care Team Providers Care Take Out Waiter Name Role Phone Unavailable Primary Care Provider Unavailabl e Allergies Active Allergy Reactions Criticality Noted Date Comments Sulfa (Sulfonamide Antibiotics) Hives High 12/23 Sulfamethoxazole-Trimethoprim Hives,Rash High 2016 Medications Cosentyx UnoReady Pen 300 mg/2 mL Pen Injector 300 mg. 11/24/2024 Active spironolactone (ALDACTONE) 100 mg tablet Take 100 mg by mouth daily. Active omeprazole (PriLOSEC) 20 mg Capsule, Delayed Release(E.C.) Take 20 mg by mouth daily. 06/04/2025 Active Active Problems No known active problems Encounters Date Type Department Care Team Description 06/08/2025 1:30 PM CDT Office Visit [facility] Oncology and Hematology - [place] [address] [place] [address] Lyle Soriano MD Iron overload (Primary Dx) from Last 3 Months Family History Medical History Relation Name Comments Diabetes Brother 1 No Known Problems Brother 2 No Known Problems Child Hypertension Father No Known Problems Mother Relation Name Status Comments Brother 1 Alive Brother 2 Alive Child Alive Father Alive Mother Alive Social History Tobacco Use Types Packs/Day Years [...] Mass Index 44.53 06/08/2025 1:23 PM CDT Plan of Treatment Upcoming Encounters Date Type Department Care Team (Late st Contact Info) Description 06/22/2025 4:30 PM CDT Telephone Check Up [facility] Oncology and Hematology - [place] [address] [facility] [address] [place] [address] Lyle Soriano MD [address] [facility] [address] [place] [address] Health Maintenance Due Date Last Done Comments HPV VACCINES (1 - 3-dose series) 2014 DTAP/TDAP/TD VACCINES (1 - Tdap) 2018 HEPATITIS B VACCINES (1 of 3 - 19+ 3-dose series) 2018 HPV/Cotest (21-29) 2020 Preventative Visit- Commercial 09/24/2024 1 11/16/2023, 09/10/2023, 09/04/2022, Additional history exists INFLUENZA VACCINE (#1) 2025 COVID-19 Vaccine ( - 2024-2 6 season) 2025 11/18/2020, 10/28/2020 CERVICAL CANCER SCREENING 09/04/2025 PAP SMEAR 09/04/2025 09/04/2022 Insurance BS BLUE ACCESS/TRUE BLUE PPO
--- OUTSIDE RECORDS SUMMARY | 2025-06-08 16:24 | XMS_ITS | Clinical Summary ---
Author Organization [facility] Address Critical access hospital[address] [place] [address] Care Team Providers Care Business Management Associate Name Role Phone Elian Galeana MD Unavailable Leila Moncada PA-C Primary Care Provider +1- [phone] Allergies Active Allergy Reactions Criticality Noted Date Comments Sulfa Antibiotics Hives Medium 01/09/2017 Sulfamethoxazole-Trimethoprim Hives,Rash Low 2016 Medications Multiple Vitamins-Mineral s (ONE-A-DAY WOMENS VITACRAVES) Chew Tab 0 Active ketoconazole (NIZORAL) 2 % shampooIndicatio ns:Seborrheic dermatitis APPLY TOPICALLY 2 TIMES A WEEK 120 mL 1 3 Active cetirizine (ZYRTEC) 10 MG tabletIndication s:Allergic rhinitis, unspecified seasonality, unspecified trigger Take 1 tablet (10 mg total) by mouth daily. 30 tablet 5 4 Active fluticasone propionate (FLONASE) 50 MCG/ACT nasal sprayIndications :Allergic rhinitis, unspecified seasonality, unspecified trigger 2 sprays by Each Nostril route daily. SHAKE LIQUID 48 g 1 4 Active COSENTYX UNOREADY 300 MG/2ML Solution Auto-injector 5 Active spironolactone (ALDACTONE) 100 MG tablet Take 1 tablet (100 mg total) by mouth daily. Active Active Problems Problem Noted Date Diagnosed Date Elevated ferritin 03/26/2025 Acne vulgaris 02/09/2025 Primary hypertension 02/09/2025 Snoring 02/09/2025 Loose stools 07/08/2024 Class 3 severe obesity due t o excess calories with serious comorbidity and body mass index (BMI) of 45.0 to 49.9 in adult 05/19/2024 Gastroesophageal reflux disease without esophagi tis 05/19/2024 Allergic rhinitis, unspecifi ed seasonality, unspecified trigger 05/19/2024 History of iron deficiency anemia 05/19/2024 Seborrheic dermatitis 07/17/2022 Chronic pain of both knees 04/18/2021 Hyperhidrosis 04/18/2021 Resolved Problems Problem Noted Date Diagnosed Date Resolved Date BRBPR (bright red blood per rectum) 07/08/2024 03/26/2025 Bacterial vaginosis 06/19/2022 10/17/19 23 Dysfunction of both eustachian tubes 07/29/2021 10/17/2022 Screening for diabetes mellitus 04/18/2021 04/25/2021 Heart palpitations 07/03/2019 3 ([facility] 01/28/2019 10/15/19 20 Encounters Date Type Department Care Team Description 05/26/2025 Epitiro Message Enc [facility] [place] [address] Leila Moncada PA-C Possible UTI 03/26/2025 3:40 PM CDT Office Visit [address] [address] Leila Moncada PA-C Follow Up (Follow up ) 03/26/2025 Travel 03/13/2025 Epitiro Message Enc [facility] [address] Lelia Moncada PA-C Hematology referral from Last 3 Months Immunizations Immunization Administration Dates Next Due PFIZER COVID-19 (ORIGINAL FO RMULATION, PURPLE CAP) mRNA, LNP-S, PF, 30 MCG/0.3 ML DOSE 11/18/2020,10/28/2020 Family History Medical History Relation Comments Diabetes Brother 1 Hypertension Father Diabetes Maternal Grandmother Relation Status Comments Brother 1 Alive Brother 2 Alive Father Alive Maternal Grandfather Alive Maternal Grandmother Alive Mother Alive Paternal Grandfather (Age 78) Paternal Grandmother Alive Social History Tobacco Use Types Packs/Day Years Used Date Smoking Tobacco: Every Day Electronic Cigarettes Smokeless Tobacco: Never Tobacco Cessation:Ready to Q uit: Not Asked; Counseling Given: No Comments:E-cigarrettes Alcohol Use Standard Drinks/Week Comments Yes [...] file Not on file Not on file Last Filed Vital Signs Vital Sign Reading Time Taken Comments Blood Pressure 128/82 03/26/2025 3:44 PM CDT Pulse 105 03/26/2025 3:44 PM CDT Temperature 35.9 C (96.6 F) 03/26/2025 3:44 PM CDT Respiratory Rate 19 03/26/2025 3:44 PM CDT Oxygen Saturation 99% 03/26/2025 3:44 PM CDT Inhaled Oxygen Concentration - - Weight 119.5 kg (263 lb 6.4 oz) 03/26/2025 3:44 PM CDT Height 162.6 cm (5' 4) 03/26/2025 3:44 PM CDT Body Mass Index 45.21 03/26/2025 3:44 PM CDT Plan of Treatment Upcoming Encounters Date Type Department Care Team (Late st Contact Info) Description 08/26/2025 9:20 AM CHARACTER ACTOR Office Visit [facility] Multispecialty Care - [address], [address] [place] [address] Mateusz Sanchez, DO [address] [facility] [address] [place] [address] 10/05/2025 3:40 PM CHARACTER ACTOR Office Visit [facility] Medical Group Family Medicine - [place] [address] [place] [phone] Leila Moncada PA-C 100 [facility] [place] [address] Health Maintenance Due Date Last Done Comments HPV Vaccines (1 - 3-dose series) 2014 DTaP, Tdap and Td Vaccines ( 1 - Tdap) 2018 Hepatitis B Vaccines (1 of 3 - 19+ 3-dose series) 2018 Pneumococcal Vaccine: Pediatrics (0 to 5 Years) and At-Risk Patients (6 to 49 Years) (1 of 2 - PCV) 2018 Annual Physical 07/17/2023 07/17/2022 COVID-19 Vaccine (3 - 2024-2 6 season) 2025 11/18/2020, 10/28/2020 Cervical Cancer Screening Pa p Smear (Age 21 to 29) Every 3 Years 09/04/2025 09/04/2022, 06/10/2021 Cervical Cancer Screening 09/04/2025 Hepatitis C Completed 10/14/2022 PHQ-2 (Physician [place]) Completed 02/09/2025 Meningococcal B Vaccine Aged Out No l onger eligible based on patient's age to complete this topic Meningococcal Vaccine Aged Out No giovani ev eligible based on patient's age to complete this topic RSV Immunizations Under 20 Months Aged Out No longer eligible b ased on patient's age to complete this topic Procedures Procedure Name Priority Date/Time Associated Diagnosis Comments HEPATITIS C ANTIBODY W/RFX TO HCV RNA Routine 10/14/2022 9:53 AM CHARACTER ACTOR Need for hepatitis C screening test from Last 3 Months or Most Recently Relevant to Health Maintenance Results * HEPATITIS C ANTIBODY W/RFX TO HCV RNA (10/14/2022 9:53 AM CHARACTER ACTOR) HEPATITIS C AB NON-REACT SB NON-REACT SB [facility] SIGNAL TO CUTOFF <0.02 <1.00 [facility] Comment: HCV antibody was non-reactive. There is no laboratory evidence of HCV infection. In most cases, no further action is required. However, if recent HCV exposure is suspected, a test for HCV RNA (test code 85068) is suggested. For additional information please refer to http://education.Seek & Adore/faq/VSC03p5 (This link is being provided for informational/ educational purposes only.) 10/14/2022 9:53 AM CHARACTER ACTOR 10/14/2022 9:54 AM CHARACTER ACTOR Narrative [facility] - VERITO ORDERS - 10/15/2022 9:39 AM CHARACTER ACTOR FASTING:YES AN UPDATE OR CORRECTION HAS BEEN MADE TO NAME FASTING: YES Resulting Agency Comment Performing Organization Information: Site ID: [id number] Name: [facility] Address: [address] [facility] [place] [address] Director: Aquiles Boyle D.O., MPH us Leila Moncada PA-C LABORATORY Final Resu lt [facility]ITO HALL [facility] [address] [address] [place] [address], from Last 3 Months or Most Recently Relevant to Health Maintenance Insurance [facility] Care Teams Business Management Associate Relationship Specialty Start Date End Date Leila Moncada PA-C [address] [place], [place] [phone] PCP - General PHYSICIAN CONDEMNATION ENGINEER 07/12/22 Elian Galeana MD [facility] [address] [place], [place] [phone] EP Graphic Engineer CLINICAL CARDIAC ELECTROPHYSIOLOGY 07/04/19
--- OUTSIDE RECORDS SUMMARY | 2025-06-08 16:24 | XMS_ITS | Encounter Summary ---
Author Organization [facility] Address [address] [place] [address] Care Team Providers Care Automated Weaver Name Role Phone Elian Galeana MD Unavailable Rico Hall MD Primary Care Provider Unav ailable Leila Moncada PA-C Primary Care Provider +1- [phone] Encounter Details Date Type Department Care Team (Late st Contact Info) Description 02/15/2022 [employer] Message Enc [facility] Medical [facility] Family Medicine - [place] [address] [place] [phone] Leila Moncada PA-C [address] [place] [address] follow up Social History Tobacco Use Types Packs/Day Years [...] suspected to have Coronavirus/COVID-19? No / Unsure 02/13/2022 11:05 AM CDT documented as of this encounter [...] Morgan RN Active documented in this encounter Plan of Treatment Upcoming Encounters Date Type Department Care Team (Late st Contact Info) Description 08/26/2025 9:20 AM HELP DESK ADMINISTRATOR Office Visit [facility] Multispecialty Care - [facility] [address] [place] [phone] Mateusz Sanchez DO [address] [facility] [address] [place] [address] 10/05/2025 3:40 PM HELP DESK ADMINISTRATOR Office Visit [facility] Family Medicine - [place] [address] [place] [phone] Leila Moncada PA-C [address] [place] [address] documented as of this encounter Visit Diagnoses Not on filedocumented in this encounter Additional Health Concerns Assessment Noted Time PHQ-9 Depression Total Score: 0 04/18/20 21 3:52 PM CDT documented as of this encounter Care Teams Automated Weaver Relationship Specialty Start Date End Date Rico Hall MD Three [facility]. [address] [address] PCP - General FAMILY PRACTICE 06/24/19 07/11/22 Leila Moncada PA-C [address] [place] [address] PCP - General PHYSICIAN MANAGER MOBILITY 07/12/22 Elian Galeana MD Three [facility]. [place] [address] [place] [address] EP Boots And Shoes Supervisor CLINICAL CARDIAC ELECTROPHYSIOLOGY 07/04/19 documented as of this encounter
--- OUTSIDE RECORDS SUMMARY | 2025-06-08 16:24 | XMS_ITS | Encounter Summary ---
Author Organization [facility] Address [address] [place] [address] Care Team Providers Care Subsystems Engineer Name Role Phone Elian Galeana MD Unavailable Rico Hall MD Primary Care Provider Unav ailable Leila Moncada PA-C Primary Care Provider +1- [phone] Encounter Details Date Type Department Care Team (Late st Contact Info) Description 08/11/2021 MyCPinion.ggt Message Enc [facility] Medical Group Family Medicine - [place] [address] [place] [phone] Leila Moncada PA-C [address] [place] [address] Question Social History Tobacco Use Types [...] Progress Notes * Caitlin Sutherland MA - 08/11/2021 12:58 PM CST Called Leslie to get clarification of accommodations that she's requesting. Leslie said that she gets cold and wants a letter stating that she is anemic and may need to use a blanket or space heater at work. Please advise NING MACHINE TENDER documented in this encounter Plan of Treatment Upcoming Encounters Date Type Department Care Team (Late st Contact Info) Description 08/26/2025 9:20 AM SPINNING MACHINE TENDER Office Visit [facility] Medical Group Multispecialty Care - [address] [place] [address] Mateusz Sanchez DO 3 [facility] [address] [place] [address] 10/05/2025 3:40 PM SPINNING MACHINE TENDER Office Visit [facility] Family Medicine - [place] [address] [place] [phone] Leila Moncada PA-C 100 [place] [address] documented as of this encounter Visit Diagnoses Not on filedocumented in this encounter Additional Health Concerns Assessment Noted Time PHQ-9 Depression Total Score: 0 04/18/20 21 3:52 PM CDT documented as of this encounter Care Teams Subsystems Engineer Relationship Specialty Start Date End Date Rico Hall MD Three [facility]. [address] [place] [address] PCP - General FAMILY PRACTICE 06/24/19 07/11/22 Leila Moncada PA-C [address] [place] [address] PCP - General PHYSICIAN WASH DRILLER HELPER 07/12/22 Elian Galeana MD Three [facility] [address] [place] [address] EP Occup Ther CLINICAL CARDIAC ELECTROPHYSIOLOGY 07/04/19 documented as of this encounter
--- OUTSIDE RECORDS SUMMARY | 2025-06-08 16:24 | XMS_ITS | Encounter Summary ---
Author Organization [facility] Address [address] [place] [address] Care Team Providers Care Tax Staff Accountant Name Role Phone Elian Galeana MD Unavailable Rico Hall MD Primary Care Provider Unav ailable Leila Moncada PA-C Primary Care Provider +1- [phone] Encounter Details Date Type Department Care Team (Late st Contact Info) Description 04/24/2022 MyCCSIDt Message Enc [facility] Medical Group Family Medicine - [place] [address] [place] [phone] Leila Moncada PA-C [address] [place] [address] Medication request Social History Tobacco Use Types Packs/Day Years [...] st Contact Info) Description 08/26/2025 9:20 AM CONTINUOUS IMPROVEMENT ENGINEER Office Visit [facility] Multispecialty Care - [facility] [address] [facility] [address] [facility] [address] [facility] [address] [place] [address] Mateusz aSnchez, [address] [facility] [address] [place] [address] 10/05/2025 3:40 PM CONTINUOUS IMPROVEMENT ENGINEER Office Visit [facility] Family Medicine - [place] [address] [place] [phone] Leila Moncada PA-C [address] [place] [address] documented as of this encounter Visit Diagnoses Not on filedocumented in this encounter Additional Health Concerns Assessment Noted Time PHQ-9 Depression Total Score: 0 04/18/20 3:52 PM CDT documented as of this encounter Care Teams Tax Staff Accountant Relationship Specialty Start Date End Date Rico Hall MD Three [facility] [address] [place] [address] PCP - General FAMILY PRACTICE 06/24/19 07/11/22 Leila Moncada PA-C [address] [place] [address] PCP - General PHYSICIAN COAT CUTTER 07/12/22 Elian Galeana MD Three [facility]. [facility] [address] [place] [address] EP Casino Supervisor CLINICAL CARDIAC ELECTROPHYSIOLOGY 07/04/19 documented as of this encounter
--- OUTSIDE RECORDS SUMMARY | 2025-06-08 16:24 | XMS_ITS | Encounter Summary ---
Author Organization [facility] Address [address] [place] [address] Care Team Providers Care Filler Sifter Machine Name Role Phone Elian Galeana MD Unavailable Rico Hall MD Primary Care Provider Leila Figueroa PA-C Primary Care Provider +1- [phone] Encounter Details Date Type Department Care Team (Late st Contact Info) Description 06/20/2021 Discharge [facility] Outpatient Therapy [address] [place], [place] [phone] Ollie Zaragoza, PT [address] [place], [place] [phone] Social History Tobacco Use Types Packs/Day Years [...] have Coronavirus / COVID-19? No / Unsure 06/20/2021 11:11 AM CDT documented as of this encounter [...] st Contact Info) Description 08/26/2025 9:20 AM LAST PICKER Office Visit [facility] Multispecialty Care - [facility] [address] [facility] [address] [place] [address] Mateusz Sanchez, [address] [facility] [address] [place] [address] 10/05/2025 3:40 PM LAST PICKER Office Visit [facility] Family Medicine - [place] [address] [place] [address] Leila Moncada PA-C [address] [place] [address] documented as of this encounter Visit Diagnoses Not on filedocumented in this encounter Additional Health Concerns Assessment Noted Time PHQ-9 Depression Total Score: 0 04/18/20 3:52 PM CDT documented as of this encounter Care Teams Filler Sifter Machine Relationship Specialty Start Date End Date Rico Hall MD Three [facility]. [address] [place] [address] PCP - General FAMILY PRACTICE 06/24/19 07/11/22 Leila Moncada PA-C [address] [place] [address] PCP - General PHYSICIAN HEAD IRRIGATOR 07/12/22 Elian Galeana MD Three [facility]. [address] [place] [address] EP Irrigation Laborer CLINICAL CARDIAC ELECTROPHYSIOLOGY 07/04/19 documented as of this encounter
[2025-06-08 16:49] LABS: Alanine Aminotransferase 75 U/L (6-35); Albumin Level 4.4 g/dL (3.5-5.1); Alkaline Phosphatase 125 U/L (38-126); Aspartate Amino Transferase 103 U/L (14-36); Bilirubin,Total 0.5 mg/dL (0.2-1.3); Blood Urea Nitrogen 12 mg/dL (7-17); Calcium 9.5 mg/dL (8.4-10.2); Carbon Dioxide 26 mmol/L (22-30); Estimated Glomerular Filt Rate > 60; Glucose 114 mg/dL (65-110); Total Protein 8.3 g/dL (6.3-8.2)
[2025-06-08 16:55] LABS: Anion Gap 8 mmol/L (4-12); Chloride 102 mmol/L (98-107); Potassium 4.2 mmol/L (3.4-5.0); Sodium 136 mmol/L (137-145)
[2025-06-08 17:19] LABS: Iron 93 ug/dL (37-170)
[2025-06-08 17:30] LABS: Percent Iron Saturation 23 % (20-50)
[2025-06-08 17:57] LABS: Ferritin 97.70 ng/mL (6.24-137)
== END 2025-06-08 13:43 | disposition home or self-care (01) ==
LOC: ANHLAB 13:49
PROVIDERS: PCP Physician Assistant; Visit Provider Internal Medicine Hematology & Oncology
DX: E83.19 Other disorders of iron metabolism (principal)
CPT/HCPCS: 36415; 80053; 82728; 83540; 83550; 85025